=== PATIENT | female | born 1990 | race Hispanic/Latino ===

== ENCOUNTER 2017-07-08 19:50 | Emergency (ER) | payer SELFPAY ==
[2017-07-08] MEDS ORDERED: Adacel (T-DAP) 0.5 ML VIAL ONE (19:57)
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
[2017-07-08] MEDS ORDERED: Triple Antibiotic Oint 1 GM Packet ONE (20:51)
== END 2017-07-08 20:55 | disposition home or self-care (01) ==
LOC: NAV ERS 19:50
DX: S51.811A Laceration without foreign body of right forearm, initial encounter (principal); S61.212A Laceration without foreign body of right middle finger without damage to nail, initial encounter; W25.XXXA Contact with sharp glass, initial encounter
CPT/HCPCS: 12001; 90471; 90715